=== PATIENT | female | born 1990 | race Caucasian/White ===

== ENCOUNTER 2016-10-22 19:49 | Emergency (ER) | payer OTHER ==
[2016-10-22] MEDS ORDERED: NS 1,000 ML IV ONE (20:05)
[2016-10-22] MEDS ORDERED: DILAUDID IV ONE (20:05)
[2016-10-22] MEDS ORDERED: ZOFRAN IV ONE (20:05)
--- NOTE | 2016-10-22 20:27 | PROVIDER DOCUMENTATION ---
HPI-General Adult - General Chief Complaint: Abdominal Pain Stated Complaint: Gall bladder problems Time Seen by Provider: 10/22/16 19:52 Source: patient Allergies/Adverse Reactions: Patient Allergies Allergy/AdvReac Type Severity Reaction Status Date / Time Sulfa (Sulfonamide Allergy ITCHING Verified 10/22/16 21:03 Antibiotics) - History of Present Illness -Gen Adult Nature of Presenting Problems: Pt. is 26 yof that presents with c/o epigastric pain that began earlier today. Pt. reports significant N/V. Pt. 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 Pt. denies any fever, or diarrhea. Location of Pain/Injury: reports: abdomen. denies: head, face, mouth, neck, chest, upper extremity, hand(s), back, pelvis, genitalia, lower extremity, feet , upper body, lower body, generalized Pain Radiation: reports: epigastric Quality of Pain: reports: aching. denies: burning, cramping, dull, fullness, indigestion, pressure, sharp, stabbing, tearing, throbbing, tightness Severity: reports: severe. denies: mild, moderate Onset/Duration: reports: abrupt, this morning Timing: reports: still present, constant. denies: improving, gone now, resolved prior to arrival, intermittent, changing over time, getting worse Context/Activities at Onset: reports: none. denies: recent emotional stress, recent physical stress, recent trauma history, possible bad food, cold exposure , out of country travel Modifying Factors: improves with: nothing Associated Symptoms: reports: nausea, vomiting. denies: anxiety, arm pain, back /neck pain, chest pain, constipation, cough, diaphoresis, diarrhea, dizziness, EENT symptoms, fatigue, fever/chills, genitourinary problems, headaches, heartburn, joint pain, loss of appetite, malaise, muscle aches, sinus congestion /drainage, rash, seizure, shortness of breath, sensory/motor loss, pain with inspiration, swelling/mass in abdomen, syncope, weakness, trouble walking Similar Symptoms Previously?: Yes Recently seen or treated by another doctor?: No Review of Systems - Adult - REVIEW OF SYSTEMS - ADULT Constitutional: reports: see HPI. denies: chills, fever, fatique Eyes: reports: see HPI. denies: discharge, blurred vision, eye pain Ears, Nose, Mouth & Throat: reports: see HPI. denies: ear discharge, ear pain, nose pain, loose teeth, mouth/dental pain Cardiovascular: reports: see HPI. denies: chest pain, irregular heart rate, palpitations, syncope Respiratory: reports: see HPI. denies: cough, dyspnea on exertion, shortness of breath, wheezing Gastrointestinal: reports: see HPI, abdominal pain, nausea, vomiting. denies: constipation, diarrhea, difficulty swallowing, rectal bleeding Genitourinary: reports: see HPI. denies: dysuria, hematuria, incontinence, urgency Musculoskeletal: reports: see HPI. denies: bone pain, back pain, joint pain, muscle aches, neck pain Integumentary: reports: see HPI. denies: hives, itching, rash, skin thickening Neurological: reports: see HPI. denies: ataxia, headache/migraines, numbness, seizure, tremors Psychiatric: reports: see HPI. denies: anxiety, depression, emotional problems , insomnia, panic attacks, suicidal thoughts Past History - Adult - PAST MEDICAL HISTORY-ADULT Review of Records: reports: Old Records Reviewed, Nursing Assessment Review, Medications Reviewed, Social history reviewed & non-contributory. - PRIOR SURGERIES/PROCEDURES Surgical/Procedure History: reports: tonsillectomy, other - IMMUNIZATION STATUS Childhood Immunizations: See Nurse Assessment Flu Vaccine: See Nurse Assessment Physical Exam-General - PHYSICAL EXAM-ADULT Initial Vital Signs Reviewed: Yes - CONSTITUTIONAL General Appearance: alert, moderate distress. negative: anxious, lethargic, slow to respond, obtunded, combative - EYES Eyes: PERRL/EOMI, pink conjunctivae. negative: conjuctival exudate, photophobia , subconjunctival hemorrhage - HEAD, EARS, NOSE, MOUTH & THROAT HENMT: normocephalic/atraumatic, moist mucous membranes. negative: angioedema, frontal tenderness, maxillary tenderness - NECK Neck: non-tender, full range of motion, supple, normal inspection. negative: lymphadenopathy, trachial deviation, thyromegaly - RESPIRATORY Respiratory: lungs clear, normal breath sounds. negative: crackles, rales, rhonchi, stridor, wheezing - CARDIOVASCULAR Cardiovascular: normal peripheral pulses, regular rate, rhythm, no edema, no JVD , no murmur. negative: extra beats, friction rub, irregularly irregular - CHEST (BREASTS) Chest/Breast: deferred - GASTROINTESTINAL (ABDOMEN) Abdominal Exam: tenderness - GENITOURINARY Female Genitalia/Pelvic Exam: deferred Rectal Exam: deferred Hemoccult Exam: deferred - LYMPHATIC Lymphatic: no adenopathy. negative: axilla node tender, cervical node tenderness - MUSCULOSKELETAL Back Exam: normal inspection, no CVA tenderness, no vertebral tenderness. negative: ecchymosis, muscle spasm, swelling, vertebral tenderness Extremity: normal range of motion, non-tender, normal gait, normal inspection. negative: deformity, erythema, inflammation, swelling, tenderness Peripheral Pulses: radial (R): 2+, radial (L): 2+ - SKIN Integumentary: normal color, normal turgor, warm/dry. negative: cyanosis, diaphoresis, ecchymosis, erythema, jaundice, mottled, pallor, petechiae, purpura , rash, swelling, tenderness - NEUROLOGIC Neurologic: grossly normal, no motor/sensory deficits. negative: aphasia, facial droop, focal weakness, motor weakness, sensory deficit - PSYCHIATRIC Psych/Mental Status: normal mood/affect, normal thought content, normal thought process, oriented x 3. negative: anxious, paranoid, tearful Progress - PLAN OF CARE/RESULTS Progress/Plan/Lab Results: Discussed results and plan of care with patient. Patient agrees with plan and verbalizes understanding. Vital Signs Temp Pulse Resp BP Pulse Ox 10/22/16 19:51 97.6 F 90 20 112/79 100 Sulfa (Sulfonamide Antibiotics) Allergy (Verified 10/22/16 21:03) ITCHING No Home Medications 10/22/16 I&O 10/21/16 10/22/16 10/23/16 06:59 06:59 06:59 Output Total 40 Balance -40 Laboratory 10/22/16 10/22/16 10/22/16 21:58 20:50 20:50 WBC 12.84 H RBC 4.68 Hgb 14.5 Hct 41.9 MCV 89.5 MCH 31.0 MCHC 34.6 RDW Std Deviation 12.4 Plt Count 139 MPV 13.5 H Immature Gran % (Auto) 0.3 Neut % (Auto) 78.8 H Lymph % (Auto) 15.5 L [place] % (Auto) 5.1 Eos % (Auto) 0.2 Baso % (Auto) 0.1 Immature Gran # (Auto) 0.04 Neut # (Auto) 10.12 H Lymph # (Auto) 1.99 [place] # (Auto) 0.66 H Eos # (Auto) 0.02 Baso # (Auto) 0.01 Sodium Potassium Chloride Carbon Dioxide Anion Gap BUN Creatinine Estimated GFR/1.73 m2 BUN/Creatinine Ratio Glucose Calculated Osmolality Calcium Total Bilirubin AST ALT Alkaline Phosphatase Total Protein Albumin Globulin Albumin/Globulin Ratio Amylase Lipase Urine Source CLEAN CATCH Urine Color YELLOW Urine Turbidity CLEAR Urine pH 5.5 Ur Specific [place] 1.026 Urine Protein TRACE A Ur Glucose (Stick) NEGATIVE Ur Ketones (Stick) 80 A Urine Blood NEGATIVE Urine Nitrite NEGATIVE Urine Bilirubin NEGATIVE Urobilinogen Dipstick 3 A Urine Leukocytes NEGATIVE Urine WBC (Auto) <10 Urine RBC (Auto) <10 U Epithel Cells (Auto) <10 Urine Bacteria (Auto) 1+ Urine Test NEGATIVE 10/22/16 20:50 WBC RBC Hgb Hct MCV MCH MCHC RDW Std Deviation Plt Count MPV Immature Gran % (Auto) Neut % (Auto) Lymph % (Auto) [place] % (Auto) Eos % (Auto) Baso % (Auto) Immature Gran # (Auto) Neut # (Auto) Lymph # (Auto) [place] # (Auto) Eos # (Auto) Baso # (Auto) Sodium 143 Potassium 4.3 Chloride 105 Carbon Dioxide 14 L Anion Gap 24 BUN 10 Creatinine 0.7 Estimated GFR/1.73 m2 > 60 BUN/Creatinine Ratio 14 Glucose 102 Calculated Osmolality 284 Calcium 9.6 Total Bilirubin 1.13 H AST 131 H ALT 50 H Alkaline Phosphatase 95 Total Protein 7.9 Albumin 5.0 Globulin 2.9 Albumin/Globulin Ratio 1.7 Amylase 64 Lipase 29 Urine Source Urine Color Urine Turbidity Urine pH Ur Specific [place] Urine Protein Ur Glucose (Stick) Ur Ketones (Stick) Urine Blood Urine Nitrite Urine Bilirubin Urobilinogen Dipstick Urine Leukocytes Urine WBC (Auto) Urine RBC (Auto) U Epithel Cells (Auto) Urine Bacteria (Auto) Urine Test Orders Category Date Time Status Saline Loc NOW Care 10/22/16 19:[address] ABD/PELVIS W/ IV CONT ONLY [CT] Stat Exams 10/22/16 21:42 Taken AMYLASE [CHEM] Stat Lab 10/22/16 20:50 Completed CBC WITH ELECTRONIC DIFF [HEME] Stat Lab 10/22/16 20:50 Completed COMPREHENSIVE METABOLIC PANEL [CHEM] Stat Lab 10/22/16 20:50 Completed LIPASE [CHEM] Stat Lab 10/22/16 20:50 Completed TEST-URINE [PREG] Stat Lab 10/22/16 21:58 Completed URINALYSIS [URINALYSIS] Stat Lab 10/22/16 20:50 Completed 0.9% Sodium Chloride Inj [Ns] 1,000 ml Med 10/22/16 20:05 Discontinued IV 999 mls/hr Hydromorphone [Dilaudid] Med 10/22/16 20:05 Discontinued 1 mg IV NOW ONE Ondansetron [Zofran] Med 10/22/16 20:05 Discontinued 4 mg IV NOW ONE Laboratory Tests 10/22/16 10/22/16 10/22/16 20:50 20:50 20:50 WBC 12.84 H RBC 4.68 Hgb 14.5 Hct 41.9 MCV 89.5 MCH 31.0 MCHC 34.6 RDW Std Deviation 12.4 Plt Count 139 MPV 13.5 H Immature Gran % (Auto) 0.3 Neut % (Auto) 78.8 H Lymph % (Auto) 15.5 L [place] % (Auto) 5.1 Eos % (Auto) 0.2 Baso % (Auto) 0.1 Immature Gran # (Auto) 0.04 Neut # (Auto) 10.12 H Lymph # (Auto) 1.99 [place] # (Auto) 0.66 H Eos # (Auto) 0.02 Baso # (Auto) 0.01 Sodium 143 Potassium 4.3 Chloride 105 Carbon Dioxide 14 L Anion Gap 24 BUN 10 Creatinine 0.7 Estimated GFR/1.73 m2 > 60 BUN/Creatinine Ratio 14 Glucose 102 Calculated Osmolality 284 Calcium 9.6 Total Bilirubin 1.13 H AST 131 H ALT 50 H Alkaline Phosphatase 95 Total Protein 7.9 Albumin 5.0 Globulin 2.9 Albumin/Globulin Ratio 1.7 Amylase 64 Lipase 29 Urine Source CLEAN CATCH Urine Color YELLOW Urine Turbidity CLEAR Urine pH 5.5 Ur Specific [place] 1.026 Urine Protein TRACE A Ur Glucose (Stick) NEGATIVE Ur Ketones (Stick) 80 A Urine Blood NEGATIVE Urine Nitrite NEGATIVE Urine Bilirubin NEGATIVE Urobilinogen Dipstick 3 A Urine Leukocytes NEGATIVE Urine WBC (Auto) <10 Urine RBC (Auto) <10 U Epithel Cells (Auto) <10 Urine Bacteria (Auto) 1+ Urine Test 10/22/16 21:58 WBC RBC Hgb Hct MCV MCH MCHC RDW Std Deviation Plt Count MPV Immature Gran % (Auto) Neut % (Auto) Lymph % (Auto) [place] % (Auto) Eos % (Auto) Baso % (Auto) Immature Gran # (Auto) Neut # (Auto) Lymph # (Auto) [place] # (Auto) Eos # (Auto) Baso # (Auto) Sodium Potassium Chloride Carbon Dioxide Anion Gap BUN Creatinine Estimated GFR/1.73 m2 BUN/Creatinine Ratio Glucose Calculated Osmolality Calcium Total Bilirubin AST ALT Alkaline Phosphatase Total Protein Albumin Globulin Albumin/Globulin Ratio Amylase Lipase Urine Source Urine Color Urine Turbidity Urine pH Ur Specific [place] Urine Protein Ur Glucose (Stick) Ur Ketones (Stick) Urine Blood Urine Nitrite Urine Bilirubin Urobilinogen Dipstick Urine Leukocytes Urine WBC (Auto) Urine RBC (Auto) U Epithel Cells (Auto) Urine Bacteria (Auto) Urine Test NEGATIVE - CT/MRI 1 CT Study: Abdomen (Gallbladder upper limits of normal in size. Consider follow up ultrasound (Heather)), Pelvis CT Results: See note Departure - Departure Time of Disposition Order: 23:06 DIAGNOSIS: Enlarged gallbladder Abdominal pain Qualifiers: Abdominal location: right upper quadrant Qualified Code(s): R10.11 - Right upper quadrant pain Disposition: HOME 01 Certified Medical Emergency: Emergent Condition: Stable Additional Instructions: Follow up with primary care physician Follow up with surgeon Take medications as directed Return to ED for any concerns or worsening of symptoms ED Follow Up Instructions: You have been treated by a care provider in the Emergency Department. These instructions are being provided to you so you can have an understanding of how to care for yourself upon discharge. Upon discharge from the Emergency Department, you are responsible for making arrangements for follow-up care by a physician of your choice. Take all prescribed medications as directed. Return to the Emergency Department immediately for any new or worsening symptoms. You may call the Physician Referral phone number at [phone] to obtain a list of Physicians who are taking new patients. Prescriptions: Hydrocodone/APAP 7.5 mg/325 mg [[place]-7.5] 1 each PO Q6H PRN PRN #12 tablet PRN Reason: Pain Ondansetron [Zofran] 4 mg PO Q6H PRN PRN #20 tablet PRN Reason: Nausea Referrals: None,PCP [Primary Care Provider] - Cam Ingram MD [STAFF PHYSICIAN] - Attestation - Physician/ Mid-level Attestation Patient care was provided by Mid-level provider (WAITER/WAITRESS TOURIST CLASS/PA):: Yes Mid-level provider:: Jenni Herron Mid-level documentation review:: The Mid-level provider documentation, treatment plan and medical decision making was reviewed by the physician who agrees with all treatment and medical decision making by the P.
[2016-10-22 21:11] LABS: MANUAL DIFF NEEDED? NO; URINE MICRO REVIEW NEEDED? NO; URINE SOURCE CLEAN CATCH
[2016-10-22 21:13] LABS: BASO% 0.1 % (0.0-0.8); EOS# 0.02 X1000 (0.0-0.7); EOS% 0.2 % (0.0-10.0); HEMATOCRIT 41.9 % (37.0-47.0); HEMOGLOBIN 14.5 g/dL (12.0-16.0); IMM GRAN# 0.04 X1000 (0.0-0.04); IMM GRAN% 0.3 % (0.0-0.5); LYMPH# 1.99 X1000 (1.2-3.4); LYMPH% 15.5 % (20.5-51.1); MCHC 34.6 g/dL (33-37); MCV 89.5 FL (81-99); MONO# 0.66 X1000 (0.11-0.59); MONO% 5.1 % (1.7-9.3); MPV 13.5 FL (7.4-10.4); NEUT% 78.8 % (42.2-75.2); PLT 139 X1000 (130-400); RBC 4.68 XMIL (4.2-5.4)
[2016-10-22 21:17] LABS: BILIRUBIN URINE NEGATIVE (NEGATIVE); BLOOD URINE NEGATIVE (NEGATIVE); COLOR YELLOW; GLUCOSE URINE NEGATIVE (NEGATIVE); LEUKOCYTES URINE NEGATIVE (NEGATIVE); NITRITE URINE NEGATIVE (NEGATIVE); PH URINE 5.5; PROTEIN URINE TRACE mg/dL (NEGATIVE); SP GRAVITY URINE 1.026; TURBIDITY URINE CLEAR (CLEAR); UROBILINOGEN URINE 3 mg/dL (NORMAL)
[2016-10-22 21:18] LABS: UR EPITHELIAL CELLS <10 /HPF (<10); URINE BACTERIA 1+ /HPF; URINE RBC <10 /HPF (<10); URINE WBC <10 /HPF (<10)
[2016-10-22 21:40] LABS: AGAP 24; ALKALINE PHOSPHATASE 95 U/L (32-104); AMYLASE 64 U/L (20-200); BUN 10 mg/dL (8-22); CALCIUM 9.6 mg/dL (8.8-10.2); CHLORIDE 105 mmol/L (98-107); COSMO 284; GOT 131 U/L (10-30); GPT 50 U/L (10-36); LIPASE 29 U/L (13-60); POTASSIUM 4.3 mmol/L (3.5-5.1); SODIUM 143 mmol/L (136-145); TCO2 14 mmol/L (25-35); TOTAL BILIRUBIN 1.13 mg/dL (0.20-1.00); TOTAL PROTEIN 7.9 g/dL (6.3-8.3)
[2016-10-22 23:24] VITALS: BP 123/72
--- NOTE | 2016-10-23 15:32 | Diag Imaging Result Document ---
PROCEDURE NAME: CT ABD/PELVIS W/ IV CONT ONLY - 10/22/2016 CT ABDOMEN AND PELVIS WITH IV CONTRAST ONLY: Exam performed with intravenous contrast only per request of the referring provider. A dose-reduction protocol was used. No comparison exam. FINDINGS: The visualized lung bases are clear. There are postsurgical changes of apparent gastric reduction surgery. There is no discrete internal or external hernia identified. There is no evidence of bowel obstruction. The cecum extends to the right upper pelvis. The appendix has a small amount of air in the lumen and does not appear inflamed. There is no substantial bowel wall thickening identified. There is some retained fecal debris in the right colon. There is no abscess identified. There is no free air. There are no substantial abnormalities of the liver, spleen, adrenal glands, or pancreas identified. The gallbladder is borderline distended. There are no calcified gallstones or substantial pericholecystic inflammation identified. The bilateral kidneys enhance homogeneously. There is no hydronephrosis. There are no substantially enlarged lymph nodes identified. Images of the pelvis show the uterus to deviate to the left, which is likely longstanding. There is a small amount of free fluid in the posterior pelvis. There is no abnormal pelvic mass identified. IMPRESSION: 1. Borderline distended gallbladder. No calcified gallstones or pericholecystic inflammation identified. Consider gallbladder ultrasound for further evaluation. 2. Postsurgical changes of apparent gastric reduction. No bowel obstruction. No internal or external hernia identified. 3. Unremarkable appendix. No abscess. No free air. 4. Small amount of free fluid in posterior pelvis. [facility] Physician provided preliminary results at 11:00 p.m. on 10/22/2016. [facility]
== END 2016-10-22 23:25 | disposition home or self-care (01) ==
LOC: ED 19:49
DX: K82.8 Other specified diseases of gallbladder (principal); R10.11 Right upper quadrant pain; R11.2 Nausea with vomiting, unspecified; Z98.84 Bariatric surgery status
CPT/HCPCS: 74177; 80053; 81001; 81025; 82150; 83690; 85025; 96374; 96375; J1170; J2405; J7030; Q9967